=== PATIENT | female | born 1960 ===

== ENCOUNTER 2023-07-31 13:35 | Outpatient (AMB) | payer MEDICARE, SELFPAY ==
--- NOTE | 2023-07-31 13:38 | A.OFFVIS_ITS ---
Intake Vital Signs 07/31/23 13:56 Weight 135 lb 2 oz BP 130/60 Blood Pressure Location Lt brachial Position Sitting Respiration 16 Pulse 86 Pulse Source Pulse Oximeter Pulse Oximetry (%) 98 Oxygen Delivery Method Room Air Intake Visit Reasons: Pain Pump Revision Discussion/unable to lvm Intake Note: Patient comes in for initial visit was referred by [facility]. Allergies No Known Allergies Allergy (Verified 07/31/23 13:58) HPI HPI Comments History of Present Illness Details Mau is very pleasant 62 years old very unfortunate female who presents in my office in severe acute distress. On examination she was moaning and grunting, she was not able to find 1 position sitting in examination chair in which she would find herself comfortable. She was constantly changing her position turning from side to side bringing the chair back up and down find the only position in which she would be comfortable with. She apparently has extensive history of multiple surgeries on her back. She received cervical fusion as well as lumbar fusion. According to her when she was getting lumbar surgery this screw went through the cartilage and the injured her ?spinal cord ?, I pointed out to her that spinal cord ends up at the lowest thoracic or highest number vertebra but without knowing the level of her surgery I cannot confirm or deny whether it is true or not. In terms of tissue damage she repo rts her pain is crushing exhausting and freezing sensation. She cannot sleep normally because of her pain cannot do activities of daily living she can take care of herself, in fact she admitted that she drove herself to our office but she states that she cannot function normally. She is retired individual. She reports that weather changes in movements aggravates her pain in oral medications helps her pain. She is on exuberant doses of oral opioid medications including OxyContin 20 mg twice a day and oxycodone 10 mg p.r.n. unknown numbers. Her pump was interrogated today and with the great surprise I found that she is receiving 1000 mcg of fentanyl a day for 41 micro g of fentanyl poor our and on top of that as a tertiary medication she has in her system morphine which is 20 milligrams/mL and bupivacaine in concentration of 40 milligrams/mL. Therefore on top of 1000 mcg of fentanyl a day she receives 13 mg of morphine a day intrathecally. Her past medical history significant for kidney stones arthritis and history of ovarian cysts. She admits smoking cigarettes 1 half a pack per day. He denies drinking alcohol she denies drinking caffeinated beverages she denies recreational drugs. Review of Systems Const Reports body aches, Reports difficulty sleeping and Reports fatigue ENT Reports Normal hearing present Card Reports no additional complaints Resp Reports no additional complaints GI Reports no additional complaints Reports as per HPI Musc Reports as per HPI Neuro Reports as per HPI, Reports Normal hearing present, Denies Abnormal speech present, Denies confusion and Denies Sensory deficit (Neuro) Psych Denies confusion Endo Reports fatigue Physical Exam Vital Signs: Last Vital Signs Pulse 86 07/31/23 13:56 Resp 16 07/31/23 13:56 BP 130/60 07/31/23 13:56 Pulse Ox 98 07/31/23 13:56 Oxygen Delivery Method Room Air 07/31/23 13:56 Const General: no acute distress; No confusion Nutritional Appearance: thin and underweight Orientation/consciousness: patient oriented x3 and No confusion Eyes General: appearance normal, both eyes and all related structures Pupils: Equal, round and reactive pupils present EOM: EOMs intact bilaterally Neck Neck: Yes full ROM Chest Chest palpation & inspection: normal inspection of the chest Resp Effort & Inspection: normal respiratory effort, able to speak in complete sentences, normal respiratory pattern, no audible wheezes and no cough Cardio Jugular venous distension: no JVD GI Inspection: Yes normal to inspection Back/Spine/Pelvis Other: Several anterior cervical incisions as well as several incisions in the lumbar spine delineate previously made surgeries. On the left anterior medial surface of the abdomen there is site of implantation of the intrathecal pain pump it looks like that it is 40 cc pump. Neuro General: patient oriented x3, gait normal and No confusion Cranial nerves: Yes CN's II-XII intact bilaterally, Yes Equal, round and reactive pupils present, Yes Normal hearing present and Yes Ability to bilaterally elevate shoulders present Speech: No Abnormal speech present Gait exam (Neuro): Normal gait present Motor exam (neuro): 5/5 motor strength present throughout Sensory Exam: No Sensory deficit (Neuro) Extrem General: No pedal edema Psych Speech and movement: Normal speech and movement present Affect: normal affect Attitude: cooperative Thought process: Normal thought process present Thought content: Normal thought content present Insight: Good insight present (Psych) Judgement: Good judgement present (Psych) Assessment & Plan Assessment & Plan (1) Postlaminectomy syndrome, cervical: Code(s): M96.1 - Postlaminectomy syndrome, not elsewhere classified Plan: (2) Postlaminectomy syndrome, lumbar: Code(s): M96.1 - Postlaminectomy syndrome, not elsewhere classified Plan: (3) Chronic pain syndrome: Code(s): G89.4 - Chronic pain syndrome Plan: (4) Opioid-induced hyperalgesia: Code(s): R20.8 - Other disturbances of skin sensation; T40.2X5A - Adverse effect of other opioids, initial encounter Plan: (5) Implantable intrathecal infusion pump present: Code(s): Z96.89 - Presence of other specified functional implants Plan: Opioid induced hyperalgesia was explained to the patient today during the conversation. It was very difficult and prolonged conversation. I explained to the patient that I would never put the patient with oral opioids on intrathecal pain pump with opioids. Unfortunately she continues to take oral medications oxycodone and OxyContin. On top of that she has 2 different opioids in her pump: Fentanyl and morphine this only make her condition worse. I explained to the patient that the best case scenario would be to stop all th opioid medications oral and intrathecal, and attempt to start her on nonopioid pain pump with medications such is Prialt, she can keep her bupivacaine in the pump, she may receive medications like clonidine and baclofen in the pump. Explained to the patient that I need her off of 4 weeks at least of any opioid medications. She told me that she will not be able to withdraw herself from a opioids in ambulatory setting. I explained to her that possibility exists probably to wean her of the opioids in rehab facility but insurance coverage needs to be verified for this. Monetary and financial issues seem to be significant problem for this patient as well. She was not very happy to hear that Prialt medication would require 2400 dollars a year co-pay with her Medicare insurance. She also reported to me that she tried to find ketamine Clinic which would be infusing ketamine intravenously for her to alleviate her pain. I told her that possibility exist to find a compounding pharmacy which would agree to prescribe oral ketamine for this patient. With recent development of ketamine probably sitting in the media she is reluctant to hear about ketamine as the help her her condition. In any case I explained to her that I will be able to take over her pain pump if she will find herself able to wean herself from the opioid medications. She thinks that her pain will be even worse on the all of this medications- I pointed out to her that her pain today is 10/10 and she is taking all of this medications listed above and she is still very uncomfortable. In terms of pain relief she has nothing to lose if she will stop her opioid medications. Admittedly she can experience withdrawal on tapering down of the opioids but those withdrawal symptoms could be managed with oral medications such is lucemira, clonidine, hydroxyzine. Patient Instructions: I here by testify that I spent 55 minutes in conversation with this patient, as well as evaluating her records, examining and interrogating her pain pump and organizing this note. Coding Level of Care Code New Pt Level 4 (81089) Diagnoses Postlaminectomy syndrome, cervical M96.1 Postlaminectomy syndrome, lumbar M96.1 Chronic pain syndrome G89.4 Opioid-induced hyperalgesia R20.8; T40.2X5A Implantable intrathecal infusion pump present Z96.89
[2023-07-31 13:56] VITALS: BP 130/60; PULSE 86; RESP 16; O2SAT 98
== END 2023-07-31 14:39 | disposition home or self-care (01) ==
PROVIDERS: Referring Provider Anesthesiology Pain Medicine; Visit Provider Anesthesiology
DX: M96.1 Postlaminectomy syndrome, not elsewhere classified (principal); G89.4 Chronic pain syndrome; R20.8 Other disturbances of skin sensation; T40.2X5A Adverse effect of other opioids, initial encounter; Z96.89 Presence of other specified functional implants
CPT/HCPCS: 99204

== ENCOUNTER → 2023-07-31 13:35 | Outpatient (BNVA) | payer MEDICARE, SELFPAY | PROVIDERS: Visit Provider Anesthesiology | DX: Z45.89 Encounter for adjustment and management of other implanted devices (principal); M96.1 Postlaminectomy syndrome, not elsewhere classified; G89.4 Chronic pain syndrome; R20.8 Other disturbances of skin sensation; T40.2X5A Adverse effect of other opioids, initial encounter | CPT/HCPCS: 99202 ==